=== PATIENT | female | born 1930 | race Caucasian/White ===

== ENCOUNTER 2018-06-11 15:33 | Emergency (ER) | payer OTHER ==
--- NOTE | 2018-06-11 15:38 | PDOC ---
Attending Attestation - Resident Resident Name: Sa Arianeira - ED Attending Attestation I have performed the following: I have examined & evaluated the patient, The case was reviewed & discussed with the resident, I agree w/resident's findings & plan, Exceptions are as noted - HPI HPI: 88 yo F presents with vomiting and diarrhea. She had 2 days of vomiting and 3 days of diarrhea, which has continued. Denies fever, chills. No sick contacts. She was recently on a 6 week cruise to [place], did not eat anything off the ship. No sick contacts on the ship. She did not become sick until 5 days after returning. She ate mussels the night before she became ill. - Physicial Exam PE: GENERAL: Awake, alert, and fully oriented, in no acute distress HEAD: No signs of trauma EYES: PERRLA, EOMI, sclera anicteric, conjunctiva clear ENT: Auricles normal inspection, hearing grossly normal, nares patent, oropharynx clear without exudates. Dry mucosa NECK: Normal ROM, supple, no lymphadenopathy, JVD, or masses LUNGS: Breath sounds equal, clear to auscultation bilaterally. No wheezes, and no crackles HEART: Regular rate and rhythm, normal S1 and S2, no murmurs, rubs or gallops ABDOMEN: Soft, nontender, hyperactive bowel sounds. No guarding, no rebound. No masses EXTREMITIES: Normal range of motion, no edema. No clubbing or cyanosis. No cords, erythema, or tenderness NEUROLOGICAL: Cranial nerves II through XII grossly intact. Normal speech, normal gait. Motor and sensation intact SKIN: Warm, Dry, normal turgor, no rashes or lesions noted. - Medical Decision Making Suspect either a viral illness or food poisoning in light of eating shellfish the night before she became ill. I doubt it was related to the cruise, as it was more than 48 hours after she returned that she became sick. Abd nontender. Diarrhea is nonbloody. Will send stool studies. IV hydration, loperamide (she is low risk for c diff).
[2018-06-11] MEDS ORDERED: LACTATED RINGERS SOLUTION 1000 ML INFUS.BAG IV ONE (15:48)
[2018-06-11 15:50] VITALS: BP 146/74; PULSE 84; TEMP 97.8; BMI 20.8
[2018-06-11] MEDS ORDERED: LOPERAMIDE HCL 2 MG CAPSULE PO ONE ×2 (15:53→17:05)
--- NOTE | 2018-06-11 15:56 | PDOC ---
History of Present Illness - General Chief Complaint: Diarrhea Stated Complaint: DIARRHEA Time Seen by Provider: 06/11/18 15:37 History Source: Patient Exam Limitations: No Limitations - History of Present Illness Travel History: Yes (6 week cruise) Initial Comments: 06/11/18 15:50 Pt is an 88yo F with PMH of HTN presenting to ED with complaints of diarrhea x3d. Pt was recently on a 6 week cruise that went to [place] and [facility]. She did not get off the ship and ate whatever was on the boat. She went alone and is unsure if anyone else was sick. Symptoms started 3 days ago with nausea and nbnb emesis. She states she vomited multiple times and had been having multiple bouts of non bloody diarrhea. She has not vomited today and was able to keep down crackers and jam. She denies fevers, chills, abdominal pain, dysuria, urinary frequency, chest pain, sob, syncope. PMD: PMH: see hpi PSH: cholecystectomy Meds: see med rec Allergies: nkda Past History - Past Medical History Allergies/Adverse Reactions: Allergies Allergy/AdvReac Type Severity Reaction Status Date / Time No Known Allergies Allergy Verified 06/11/18 15:36 Home Medications: Ambulatory Orders Amlodipine Besylate [Norvasc -] 5 mg PO DAILY 06/11/18 Aspirin [Ecotrin] 325 mg PO DAILY 06/11/18 Atovaquone/Proguanil HCl [Malarone 62.5-25 mg Ped Tab] 2 each PO DAILY 06/11/18 Calcium Carbonate [Tums] 400 mg PO DAILY 06/11/18 Cholecalciferol (Vitamin D3) [Vitamin D3 -] 400 unit PO TID 06/11/18 Metoprolol Succinate 50 mg PO DAILY 06/11/18 Multivitamins [Tab-A-Vit -] 1 tab PO DAILY 06/11/18 Abd/GI Specific PMHX - Complaint Specific PMHX Colitis: No Diverticulitis: No Gall Bladder Disease: Yes (s/p cholecystectomy) GERD: No Hepatitis: No Irritable Bowel Synd (IBS): No Pancreatitis: No GI Ulcer Disease: No Review of Systems - Review of Systems Constitutional: No: Chills, Diaphoresis, Fever, Weakness HEENTM: No: Symptoms Reported Respiratory: No: Cough, Shortness of Breath Cardiac (ROS): No: Chest Pain, Lightheadedness, Chest Tightness ABD/GI: Yes: See HPI, Diarrhea. No: Constipated, Nausea, Rectal Bleeding, Vomiting, Abdominal cramping, Tarry Stools : No: Burning, Dysuria Musculoskeletal: No: Back Pain Integumentary: No: Bruising, Erythema, Rash Neurological: No: Headache, Numbness, Tingling *Physical Exam - Physical Exam General Appearance: Yes: Appropriately Dressed, Thin, Other (constantly getting up to use restroom). No: Apparent Distress HEENT: positive: EOMI, BUNNY, Other (dry mucus membranes) Neck: positive: Trachea midline, Supple. negative: Lymphadenopathy (R), Lymphadenopathy (L) Respiratory/Chest: positive: Lungs Clear, Normal Breath Sounds Cardiovascular: positive: Regular Rhythm, Regular Rate, S1, S2. negative: Edema , JVD, Murmur, Tachycardia Vascular Pulses: Carotid (R): 2+, Carotid (L): 2+, Dorsalis-Pedis (R): 2+, Doralis-Pedis (L): 2+ Gastrointestinal/Abdominal: positive: Normal Bowel Sounds, Soft. negative: Tender, Guarding, Tenderness Musculoskeletal: negative: CVA Tenderness Extremity: positive: Normal Capillary Refill. negative: Pedal Edema, Swelling Integumentary: positive: Normal Color, Dry, Warm. negative: Petechiae, Rash Neurologic: positive: party plan sales host/hostess II-XII NML intact, Fully Oriented, Alert, Normal Mood/ Affect, Normal Response, Motor Strength 5/ ED Treatment Course - LABORATORY CBC & Chemistry Diagram: 06/11/18 16:08 06/11/18 16:08 Medical Decision Making - Medical Decision Making 06/11/18 16:57 Pt is an 88yo F with PMH of HTN presenting to ED with complaints of diarrhea x3d. Pt was recently on a 6 week cruise that went to [place] and [place]. She did not get off the ship and ate whatever was on the boat. She went alone and is unsure if anyone else was sick. Symptoms started 3 days ago with nausea and nbnb emesis. She states she vomited multiple times and had been having multiple bouts of non bloody diarrhea. She has not vomited today and was able to keep down crackers and jam. She denies fevers, chills, abdominal pain, dysuria, urinary frequency, chest pain, sob, syncope. Vitals: wnl, not tachycardic, not hypotensive PE: soft abdomen, no rashes, clear lungs, normal heart sounds. Ddx includes but not limited to viral infection, infectious diarrhea, GE, medication interaction, electrolyte/metabolic disturbance -labs -LR, loperamide -stool cultures Will check labs and replete electrolytes as needed Hydration. Imodium for frequent diarrhea. 06/11/18 17:02 no white count. normal hgb Laboratory Tests 06/11/18 16:08 Sodium 131 L Potassium 3.1 L will give 40meQ po KCl and another liter of NS 06/11/18 18:42 -trial of Lomotil pt still having bowel movements but is ambulatory, afebrile, tolerating po. safe for dc home. given return precautions and dc instructions *DC/Admit/Observation/Transfer Diagnosis at time of Disposition: Diarrhea Qualifiers: Diarrhea type: presumed infectious Qualified Code(s): R19.7 - Diarrhea, unspecified - Discharge Dispostion Condition at time of disposition: Improved Decision to Admit order: No - Referrals - Patient Instructions Printed Discharge Instructions: Diarrhea Additional Instructions: You were seen in the emergency room today for diarrhea. You were given fluids and medication for the diarrhea. I recommend taking Imodium for the diarrhea. This can be found over the counter. Take as directed. I recommend a diet rich in bread, meat and potatoes. Also keep yourself well hydrated; drink plenty of water and soup. Please make an appointment with your doctor this week. Come back to the emergency room if diarrhea gets worse, you feel dehydrated, you develop fever, there is blood in the stool or if any new concerning symptom develops. Thank you - Post Discharge Activity
[2018-06-11] MEDS ORDERED: LOPERAMIDE HCL 2 MG CAPSULE ONE ×2 (16:05→17:05)
[2018-06-11 16:26] LABS: BASO % 0.8 % (0-2.0); EOS % 0.1 % (0-4.5); HEMATOCRIT 41.8 % (32.4-45.2); HEMOGLOBIN 14.5 GM/dl (10.7-15.3); LYMPH % 16.7 % (8-40); MCH 30.5 pg (25.7-33.7); MCHC 34.7 g/dl (32.0-36.0); MEAN PLT VOLUME 9.4 fl (7.5-11.1); MONO % 9.8 % (3.8-10.2); NEUT % 72.6 % (42.8-82.8); PLATELET COUNT 221 K/MM3 (134-434); RBC 4.76 M/mm3 (3.60-5.2); RDW 13.3 % (11.6-15.6)
[2018-06-11 16:46] LABS: ALBUMIN 3.7 g/dl (3.4-5.0); ALK PHOS 47 U/L (45-117); ANION GAP 16 MMOL/L (8-16); BILIRUBIN,TOTAL 0.8 mg/dl (0.2-1); BLOOD UREA NITROGEN 25 mg/dl (7-18); CALCIUM 8.8 mg/dl (8.5-10); CHLORIDE 97 mmol/L (98-107); CO2 18 mmol/L (21-32); CREATININE 0.9 mg/dl (0.55-1.3); GLUCOSE,RANDOM 97 mg/dl (74-106); POTASSIUM 3.1 mmol/L (3.5-5.1); SGOT/AST 40 U/L (15-37); SGPT/ALT 26 U/L (13-61); SODIUM 131 mmol/L (136-145); TOT PROT 6.4 g/dl (6.4-8.2)
[2018-06-11] MEDS ORDERED: POTASSIUM CHLORIDE TABS 20 MEQ TABLET.ER (FP) PO ONE (17:01)
[2018-06-11] MEDS ORDERED: SODIUM CHLORIDE 1,000 ML IV STA (17:02)
[2018-06-11] MEDS ORDERED: POTASSIUM CHLORIDE ORAL LIQUID 20 MEQ/15 ML ONE (17:02)
[2018-06-11] MEDS ORDERED: DIPHENOXYLATE 2.5/ATROPINE.025 1 COMBO TABLET PO ONE (18:03)
== END 2018-06-11 18:50 | disposition home or self-care (01) ==
LOC: FER 15:33
PROC: 3E0337Z Introduction of Electrolytic and Water Balance Substance into Peripheral Vein, Percutaneous Approach (ICD-10-PCS; principal; 2018-06-11)
DX: R19.7 Diarrhea, unspecified (principal)
CPT/HCPCS: 36415; 80053; 85025; 87045; 87046; 87177; 87209; 99283-25; J7030

== ENCOUNTER 2020-11-02 08:45 | Observation (INO) | payer OTHER ==
[2020-11-02 09:11] VITALS: BMI 25.6
[2020-11-02] MEDS ORDERED: FAMOTIDINE 20 MG/50 ML IVPB 20 MG/50 ML MG IVPB ONE ×2 (09:26→09:42)
[2020-11-02] MEDS ORDERED: LACTATED RINGERS SOLUTION 1000 ML INFUS.BAG IV ONE (09:28)
[2020-11-02] MEDS ORDERED: ACETAMINOPHEN 1000 MG/100 ML VIAL (NON FORMULARY) IVPB ONE (09:28)
[2020-11-02] MEDS ORDERED: ACETAMINOPHEN INJECTION 100 ML IVPB ONE (09:41)
[2020-11-02 10:37] LABS: BASO % 0.1 % (0-2.0); EOS % 1.8 % (0-4.5); HEMOGLOBIN 9.9 GM/dL (10.7-15.3); LYMPH % 10.3 % (8-40); MCH 23.5 pg (25.7-33.7); MEAN CELL VOLUME 73.3 fl (80-96); MEAN PLT VOLUME 9.6 fl (7.5-11.1); MONO % 3.9 % (3.8-10.2); NEUT % 83.9 % (42.8-82.8); PLATELET COUNT 249 10^3/uL (134-434); RBC 4.23 M/mm3 (3.60-5.2); RDW 19.6 % (11.6-15.6); WHITE BLOOD COUNT 9.4 K/mm3 (4.0-10.0)
[2020-11-02 10:44] LABS: INR 1.17 (0.83-1.09); PROTHROMBIN TIME (PATIENT) 14.4 SEC (9.7-13.0)
[2020-11-02 10:45] LABS: VENOUS BASE EXCESS -4.2 mmol/L (-2-2); VENOUS O2 SATURATION 64.9 % (70-80); VENOUS PH 7.374 (7.310-7.410)
[2020-11-02 10:47] LABS: ACTIVATED PTT 28.8 SECONDS (25.2-36.5)
[2020-11-02 10:56] LABS: CHLORIDE 107 mmol/L (98-107); SODIUM 138 mmol/L (136-145)
[2020-11-02 10:58] LABS: ALBUMIN 2.9 g/dl (3.4-5.0); ANION GAP 8 MMOL/L (8-16); BLOOD UREA NITROGEN 17.3 mg/dL (7-18); CALCIUM 8.5 mg/dL (8.5-10.1); CO2 23 mmol/L (21-32); GLUCOSE,RANDOM 108 mg/dL (74-106)
[2020-11-02 11:01] LABS: CREATININE 0.9 mg/dL (0.55-1.3); SGOT/AST 24 U/L (15-37); SGPT/ALT 18 U/L (13-61)
[2020-11-02 11:03] LABS: BILIRUBIN,TOTAL 0.3 mg/dL (0.2-1); TOT PROT 6.1 g/dl (6.4-8.2)
[2020-11-02 11:04] LABS: ALK PHOS 63 U/L (45-117)
[2020-11-02 11:05] LABS: LACTIC ACID 2.5 mmol/L (0.4-2.0)
[2020-11-02 11:22] LABS: EPI CELLS >36 /uL (0-25.1); HYALINE CASTS 3 /uL (0-3.1); PH,URINE 5.5 (5.0-8.0); URINE APPEARANCE CLOUDY; URINE BACTERIA 810 /uL (0-1359); URINE BILIRUBIN NEGATIVE (NEGATIVE); URINE COLOR YELLOW; URINE GLUCOSE (UA) NEGATIVE (NEGATIVE); URINE KETONE NEGATIVE (NEGATIVE); URINE LEUK ESTERASE 2+ (NEGATIVE); URINE NITRITE NEGATIVE (NEGATIVE); URINE PROTEIN TRACE (NEGATIVE); URINE RBC 13 /uL (0-23.9); URINE UROBILINOGEN 0.2 mg/dL (0.2-1.0); URINE WBC 37 /uL (0-25.8)
[2020-11-02 11:50] LABS: YEAST NON SEEN (NEGATIVE)
[2020-11-02] MEDS ORDERED: diphenhydrAMINE HCL 25 MG CAPSULE (FP) PO PRN (14:57)
[2020-11-02] MEDS ORDERED: SODIUM CHLORIDE 1,000 ML IV SCH ×3 (15:00→22:00)
[2020-11-02 16:30] LABS: LACTIC ACID 3.1 mmol/L (0.4-2.0)
[2020-11-02 20:36] LABS: LACTIC ACID 2.4 mmol/L (0.4-2.0)
[2020-11-02] MEDS: FAMOTIDINE 20 MG/50 ML IVPB 10 MG/25 ML MG IVPB SCH (21:02)
[2020-11-02] MEDS: APIXABAN 2.5 MG TABLET PO SCH (21:03)
[2020-11-02] MEDS: METOPROLOL TARTRATE 25 MG TABLET (FP) PO SCH (21:03)
[2020-11-02] MEDS: TICAGRELOR 90 MG TABLET PO SCH (21:07)
[2020-11-02] MEDS ORDERED: ATORVASTATIN CA 10 MG TABLET (FP) PO SCH (22:00)
[2020-11-03] MEDS ORDERED: METOPROLOL TARTRATE 25 MG TABLET (FP) PO ONE ×2 (06:37→07:37)
[2020-11-03 08:30] LABS: BASO % 0.3 % (0-2.0); HEMATOCRIT 26.4 % (32.4-45.2); HEMOGLOBIN 8.6 GM/dL (10.7-15.3); LYMPH % 16.2 % (8-40); MCH 23.7 pg (25.7-33.7); MCHC 32.7 g/dl (32.0-36.0); MEAN CELL VOLUME 72.6 fl (80-96); MEAN PLT VOLUME 9.2 fl (7.5-11.1); MONO % 4.3 % (3.8-10.2); NEUT % 75.2 % (42.8-82.8); PLATELET COUNT 213 10^3/uL (134-434); RBC 3.64 M/mm3 (3.60-5.2); RDW 19.5 % (11.6-15.6); WHITE BLOOD COUNT 6.2 K/mm3 (4.0-10.0)
[2020-11-03 08:46] LABS: CHLORIDE 112 mmol/L (98-107); SODIUM 141 mmol/L (136-145)
[2020-11-03 09:05] LABS: CALCIUM 7.9 mg/dL (8.5-10.1)
[2020-11-03 09:06] LABS: ANION GAP 6 MMOL/L (8-16); BLOOD UREA NITROGEN 15.5 mg/dL (7-18); CO2 23 mmol/L (21-32); GLUCOSE,RANDOM 87 mg/dL (74-106)
[2020-11-03 09:09] LABS: CREATININE 0.8 mg/dL (0.55-1.3); SGOT/AST 25 U/L (15-37); SGPT/ALT 15 U/L (13-61)
[2020-11-03 09:11] LABS: BILIRUBIN,TOTAL 0.3 mg/dL (0.2-1)
[2020-11-03 09:12] LABS: ALK PHOS 52 U/L (45-117)
[2020-11-03 09:22] LABS: ALBUMIN 2.3 g/dl (3.4-5.0)
[2020-11-03] MEDS ORDERED: PANTOPRAZOLE 20 MG TABLET PO SCH (10:00)
[2020-11-03] MEDS ORDERED: MULTIVITAMINS (DAILY MVI) TABLET (FP) PO SCH (10:00)
[2020-11-03] MEDS ORDERED: VALSARTAN 80 MG TABLET PO SCH (10:00)
[2020-11-03] MEDS ORDERED: PT OWN MED DRAWER 7, Y5N ONE (10:07)
[2020-11-03] MEDS: FAMOTIDINE 20 MG/50 ML IVPB 10 MG/25 ML MG IVPB SCH (10:10)
[2020-11-03] MEDS: TICAGRELOR 90 MG TABLET PO SCH (10:11)
[2020-11-03] MEDS: METOPROLOL TARTRATE 25 MG TABLET (FP) PO SCH (10:11)
[2020-11-03] MEDS: APIXABAN 2.5 MG TABLET PO SCH (10:11)
[2020-11-03 10:16] LABS: PLATELET ESTIMATE NORMAL
[2020-11-03] MEDS ORDERED: IRON SUCROSE INJECTION 200 MG in SODIUM CHLORIDE 90 ML IVPB ONE (14:00)
[2020-11-03 14:02] VITALS: TEMP 98.2
[2020-11-03 17:14] VITALS: BP 145/70; PULSE 80
== END 2020-11-03 17:15 | disposition home or self-care (01) ==
LOC: JER 08:45 → INTOOBSV 13:37 → UNDOADMOB 13:37 → JERBED 13:37 → J7W 16:05
PROVIDERS: ADMIT Internal Medicine; ATTEND Nurse Practitioner Acute Care
PROC: 3E033NZ Introduction of Analgesics, Hypnotics, Sedatives into Peripheral Vein, Percutaneous Approach (ICD-10-PCS; principal; 2020-11-02)
PROC: 3E033GC Introduction of Other Therapeutic Substance into Peripheral Vein, Percutaneous Approach (ICD-10-PCS; 2020-11-02)
PROC: 3E0337Z Introduction of Electrolytic and Water Balance Substance into Peripheral Vein, Percutaneous Approach (ICD-10-PCS; 2020-11-02)
DX: R21 Rash and other nonspecific skin eruption (principal); C4A.9 Merkel cell carcinoma, unspecified; R50.9 Fever, unspecified; I10 Essential (primary) hypertension; E78.5 Hyperlipidemia, unspecified; Z91.018 Allergy to other foods; I25.10 Atherosclerotic heart disease of native coronary artery without angina pectoris; I25.2 Old myocardial infarction; A04.8 Other specified bacterial intestinal infections; Z95.5 Presence of coronary angioplasty implant and graft; I48.91 Unspecified atrial fibrillation; R00.2 Palpitations; R19.7 Diarrhea, unspecified
CPT/HCPCS: 36415; 71045-TC-FY; 80053; 81003; 82550; 82728; 82803; 83540; 83550; 83605; 83735; 84443; 84484; 85025; 85610; 85730; 87040; 87086; 93005; 93010; 96361; 96365; 96367; 96375; 99285-25; C9803; G0378; J0131; J1756; U0003; U0005